=== PATIENT | male | born 1965 | race African-American/Black ===

== ENCOUNTER 2021-08-24 16:20 | Emergency (ER) | payer OTHER ==
[~2021-08-24] VITALS: Ht 180.3 cm; Wt 86.2 kg
[2021-08-24 16:26] VITALS: BP 139/89
[2021-08-24] MEDS ORDERED: TRAM-297 PO (20:25)
[2021-08-24] MEDS ORDERED: traMADol HCL 50 MG TAB PO ONE (20:30)
== END 2021-08-24 21:17 | disposition home or self-care (01) ==
LOC: ER 16:20
DX: S33.5XXA Sprain of ligaments of lumbar spine, initial encounter (principal); R94.31 Abnormal electrocardiogram [ECG] [EKG]; V43.52XA Car driver injured in collision with other type car in traffic accident, initial encounter; Y93.89 Activity, other specified; Y92.488 Other paved roadways as the place of occurrence of the external cause; Y99.8 Other external cause status
CPT/HCPCS: 72100; 93005